=== PATIENT | male | born 1975 | race Two or more races ===

== ENCOUNTER 2019-01-12 17:30 | Outpatient (AMBR) | payer OTHER, SELFPAY ==
--- NOTE | 2019-01-06 08:33 | PTNOTE_ITS ---
PT OP Initial Eval Patient Information Visit Reasons: frozen shoulder Medical Diagnosis: M75.0 Treatment Dx #1: L shoulder pain Start of Care: 01/06/19 Date of Onset: 2 months ago Initial Assessment Subjective Pt is 43 yr old male who c/o L shoulder pain x2 months. Pain level today is none at rest, and 6/10 with lifting the arm. Increased pain with reaching out and above shoulder height. 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 PMH: HTN, DM, high cholesterol Imaging: with provider Pt goal: to get rid of the pain to reach better Objective L shoulder AROM: FF: 120 deg Abd: 95 deg ER: 75 deg HBB: to L5 with pain Strength: 3+/5 in all planes PROM: end-range pain with capsular tightness limited in capsular pattern R ULTT medial n: positive TTP: L upper quadrant diffusely Assessment Pt presentation consistent with referring Dx of adhesive capsulitis of L shoulder. ROM is limited in capsular pattern with pain that limits end-range tolerance into all planes but especially ER and IR. Eval followed by HEP with materials. [employer] and [employer] Goals 1. Ind with HEP 2. Improved AROM of R shoulder to 135 deg FF, 125 deg abduction and 90 deg ER 3. Improved HBB ROM to L3 4. Pt will reach OH x10 with <=3/10 pain Treatment Plan 1. Manual therapy 2. Therex 3. Modalities as indicated, moist heat pack, ice, electrical stimulation Frequency and Duration 2x a week for 8 weeks Certification Dates: 01/06/19 to 04/08/19 Office Procedures PT Procedures PT Date of Service: 01/06/19 OP PT Eval Mod Complex 30 minutes: Yes
--- NOTE | 2019-01-12 18:22 | PT.ODAYNRPT ---
PT Outpatient Daily Note Date of Service: January 12, 2019 OP Daily Note Visit Reasons: frozen shoulder Outpatient Physical Therapy Treatment Date: 01/12/19 Subjective: About the same as time of evaluation Objective: See F/S for therex Assessment: End-range pain limits A/PROM in capsular pattern Plan: Improve shoulder ROM Length of Time (minutes) of Treatment: 30 Minutes Office Procedures PT Procedures PT Date of Service: 01/06/19 OP PT Eval Mod Complex 30 minutes: Yes PT Procedures PT Date of Service: 01/12/19 Therapeutic Exercise 30 minutes: Yes
== END 2019-01-28 23:59 | disposition home or self-care (01) ==
PROVIDERS: PCP Family Medicine; Referring Provider Family Medicine; Visit Provider Orthopaedic Surgery
DX: M25.512 Pain in left shoulder (principal)
CPT/HCPCS: 97110; 97162

== ENCOUNTER → 2024-07-01 | Outpatient (CLI) | payer OTHER, SELFPAY ==
[2024-07-01 14:41] LABS: INR 2.7 (0.9-1.3); Prothrombin Time 27.2 Seconds (9.0-12.2)
== END | disposition home or self-care (01) ==
LOC: COPL 13:10
PROVIDERS: PCP Family Medicine; Referring Provider Internal Medicine Cardiovascular Disease; Visit Provider Internal Medicine Cardiovascular Disease
DX: Z01.89 Encounter for other specified special examinations (principal)
CPT/HCPCS: 36415; 85610

== ENCOUNTER → 2024-07-04 | Outpatient (CLI) | payer OTHER, SELFPAY ==
[2024-07-04 08:32] LABS: Basophils % (Auto) 0 % (0-2.5); Eosinophils # (Auto) 0.1 Thou/mm3 (0.0-0.5); Eosinophils % (Auto) 1 % (0-10); Hematocrit 42.5 % (41.0-53.0); Hemoglobin 14.4 g/dL (13.5-16.0); Immature Granulocytes % (Auto) 0 % (0-0); Immature Granulocytes Auto 0.01 Thou/mm3 (0.00-0.00); Lymphocytes % (Auto) 37 % (10-50); Mean Corpuscular HGB Conc 33.9 g/dl (31.0-37.0); Mean Corpuscular Hemoglobin 29.1 pg (25.0-35.0); Mean Corpuscular Volume 86 fL (80-100); Monocytes # (Auto) 0.4 Thou/mm3 (0.0-0.8); Monocytes % (Auto) 7 % (0-12); Neutrophils # (Auto) 2.9 Thou/mm3 (1.8-7.7); Neutrophils % (Auto) 55 % (37-80); Nucleated Red Blood Cell % 0 /100 WBC (0); Platelet Count 264 Thou/mm3 (140-440); RDW Standard Deviation 41.5 fL (35.1-43.9); Red Blood Count 4.94 Miln/mm3 (4.50-5.90); White Blood Count 5.3 Thou/mm3 (3.8-10.6)
[2024-07-04 08:55] LABS: Alanine Aminotransferase 14 U/L (10-49); Albumin, Serum 4.9 gm/dL (3.5-5.0); Albumin/Globulin Ratio 1.8 (1.2-2.2); Alkaline Phosphatase 86 U/L (46-116); Anion Gap 7 (7-16); Aspartate Amino Transferase 17 U/L (0-34); BUN/Creatinine Ratio 14 Ratio (12-20); Blood Urea Nitrogen 13 mg/dL (9-23); Calcium 9.9 mg/dL (8.3-10.6); Calcium (Corrected) 9.9 mg/dL (8.5-10.1); Carbon Dioxide 28.4 mMol/L (20.0-31.0); Cardiac Risk Estimate 3.3 RATIO (4.0-6.7); Chloride 102 mMol/L (98-107); Cholesterol 128 mg/dL (132-200); Creatinine (Component) 0.9 mg/dL (0.6-1.3); Globulin 2.8 gm/dL (2.3-3.5); Glucose 203 mg/dL (74-106); HDL Cholesterol 39 mg/dL (40-60); LDL Cholesterol,Calculated 38 mg/dL (0-130); Magnesium 2.1 mg/dL (1.6-2.6); Osmolality,Calculated 279 (275-295); Potassium 3.9 mMol/L (3.4-5.1); Sodium 137 mMol/L (136-145); Total Protein 7.7 gm/dL (5.7-8.2); Triglycerides 253 mg/dL (30-150); eGFR > 60 See Note
[2024-07-04 08:57] LABS: Folate 11.29 ng/mL (>5.38); Vitamin B12 538 pg/mL (211-911); Vitamin D 25 Hydroxy Total 24.6 ng/mL (7.3-40.2)
[2024-07-04 09:01] LABS: B-Type Natriuretic Peptide < 20 pg/mL (0-100)
[2024-07-04 09:31] LABS: Glucose Estimated Average 232 mg/dL (80-131); Hemoglobin A1C 9.7 % Hgb (4.8-6.0)
[2024-07-04 10:36] LABS: Ferritin 90 ng/mL (10.5-307.3)
[2024-07-12 06:51] LABS: Testosterone, Free,Dialysis 55.6 pg/mL (35.0-155.0); Testosterone, Total, Dialysis 260 ng/dL (250-1100)
== END | disposition home or self-care (01) ==
LOC: COPL 07:28
PROVIDERS: PCP Family Medicine; Referring Provider Internal Medicine Endocrinology, Diabetes & Metabolism; Visit Provider Internal Medicine Endocrinology, Diabetes & Metabolism
DX: E29.1 Testicular hypofunction (principal); I11.9 Hypertensive heart disease without heart failure; Z79.899 Other long term (current) drug therapy
CPT/HCPCS: 36415; 80053; 80061; 82306; 82607; 82728; 82746; 83036; 83735; 83880; 84402; 84403; 85025

== ENCOUNTER → 2024-08-08 | Outpatient (CLI) | payer OTHER, SELFPAY ==
[2024-08-08 11:38] LABS: Prothrombin Time 21.3 Seconds (9.0-12.2)
[2024-08-08 11:54] LABS: Cardiac Risk Estimate 4.8 RATIO (4.0-6.7); Cholesterol 176 mg/dL (132-200); HDL Cholesterol 37 mg/dL (40-60); Triglycerides 679 mg/dL (30-150)
[2024-08-15 06:50] LABS: Albumin 4.5 g/dL (3.6-5.1); SHBG 10 nmol/L (10-50); Testosterone, Bioavailable 69.5 ng/dL (110.0-575.0); Testosterone, Free 33.8 pg/mL (46.0-224.0); Testosterone,Total 130 ng/dL (250-1100)
== END | disposition home or self-care (01) ==
PROVIDERS: PCP Family Medicine; Referring Provider Internal Medicine Cardiovascular Disease; Visit Provider Internal Medicine Cardiovascular Disease
DX: E29.1 Testicular hypofunction (principal)
CPT/HCPCS: 36415; 80061; 82040; 84270; 84403; 85610

== ENCOUNTER → 2024-09-02 | Outpatient (CLI) | payer OTHER, SELFPAY ==
[2024-09-02 16:56] LABS: Cardiac Risk Estimate 3.9 RATIO (4.0-6.7); Cholesterol 160 mg/dL (132-200); HDL Cholesterol 41 mg/dL (40-60); INR 2.2 (0.9-1.3); Prothrombin Time 22.9 Seconds (9.0-12.2); Triglycerides 446 mg/dL (30-150)
== END | disposition home or self-care (01) ==
LOC: COPL 15:31
PROVIDERS: PCP Nurse Practitioner Family; Referring Provider Nurse Practitioner Family; Visit Provider Internal Medicine Cardiovascular Disease
DX: E78.1 Pure hyperglyceridemia (principal)
CPT/HCPCS: 36415; 80061; 85610

== ENCOUNTER → 2024-10-03 | Outpatient (CLI) | payer OTHER, SELFPAY ==
[2024-10-03 16:43] LABS: INR 2.1 (0.9-1.3); Prothrombin Time 21.6 Seconds (9.0-12.2)
== END | disposition home or self-care (01) ==
LOC: COPL 15:51
PROVIDERS: PCP Family Medicine; Referring Provider Internal Medicine Cardiovascular Disease; Visit Provider Internal Medicine Cardiovascular Disease
DX: I35.9 Nonrheumatic aortic valve disorder, unspecified (principal)
CPT/HCPCS: 36415; 85610

== ENCOUNTER → 2024-10-31 | Outpatient (CLI) | payer OTHER, SELFPAY ==
[2024-10-31 17:26] LABS: INR 2.6 (0.9-1.3); Prothrombin Time 26.4 Seconds (9.0-12.2)
== END | disposition home or self-care (01) ==
LOC: COPL 16:29
PROVIDERS: PCP Family Medicine; Referring Provider Internal Medicine Cardiovascular Disease; Visit Provider Internal Medicine Cardiovascular Disease
DX: I35.9 Nonrheumatic aortic valve disorder, unspecified (principal)
CPT/HCPCS: 36415; 85610

== ENCOUNTER → 2024-11-29 | Outpatient (CLI) | payer OTHER, SELFPAY ==
[2024-11-29 17:55] LABS: INR 3.5 (0.9-1.3)
[2024-11-29 17:58] LABS: Prothrombin Time 35.1 Seconds (9.0-12.2)
== END | disposition home or self-care (01) ==
LOC: COPL 16:23
PROVIDERS: PCP Family Medicine; Referring Provider Internal Medicine Cardiovascular Disease; Visit Provider Internal Medicine Cardiovascular Disease
DX: I35.9 Nonrheumatic aortic valve disorder, unspecified (principal)
CPT/HCPCS: 36415; 85610

== ENCOUNTER → 2024-12-07 | Outpatient (CLI) | payer OTHER, SELFPAY | END | disposition home or self-care (01) | LOC: COPL 15:59 | PROVIDERS: PCP Family Medicine; Referring Provider Internal Medicine Cardiovascular Disease; Visit Provider Internal Medicine Cardiovascular Disease | DX: I35.9 Nonrheumatic aortic valve disorder, unspecified (principal) | CPT/HCPCS: 36415; 85610 ==

== ENCOUNTER → 2024-12-29 | Outpatient (CLI) | payer OTHER, SELFPAY ==
[2024-12-29 17:39] LABS: Prothrombin Time 20.9 Seconds (9.0-12.2)
== END | disposition home or self-care (01) ==
LOC: COPL 16:41
PROVIDERS: PCP Family Medicine; Referring Provider Internal Medicine Cardiovascular Disease; Visit Provider Internal Medicine Cardiovascular Disease
DX: I35.9 Nonrheumatic aortic valve disorder, unspecified (principal)
CPT/HCPCS: 36415; 85610

== ENCOUNTER → 2025-01-20 | Outpatient (CLI) | payer OTHER, SELFPAY ==
[2025-01-20 08:50] LABS: Creatinine MALB Rnd Ur 44 mg/dL (30-125); Microalbumin Creat Ratio 11 mg/gCrea (<30); Microalbumin, Random Urine 5 mg/L (0-300)
[2025-01-20 08:54] LABS: Cholesterol 136 mg/dL (132-200); HDL Cholesterol 34 mg/dL (40-60); LDL Cholesterol,Calculated 49 mg/dL (0-130); Triglycerides 267 mg/dL (30-150)
== END | disposition home or self-care (01) ==
PROVIDERS: PCP Family Medicine; Referring Provider Nurse Practitioner Family; Visit Provider Nurse Practitioner Family
DX: I10 Essential (primary) hypertension (principal); E78.1 Pure hyperglyceridemia
CPT/HCPCS: 36415; 80061; 82043; 82570

== ENCOUNTER → 2025-01-30 | Outpatient (CLI) | payer OTHER, SELFPAY ==
[2025-01-30 17:58] LABS: INR 3.1 (0.9-1.3)
[2025-01-30 18:13] LABS: Prothrombin Time 30.9 Seconds (9.0-12.2)
== END | disposition home or self-care (01) ==
LOC: COPL 16:18
PROVIDERS: PCP Family Medicine; Referring Provider Internal Medicine Cardiovascular Disease; Visit Provider Internal Medicine Cardiovascular Disease
DX: I35.9 Nonrheumatic aortic valve disorder, unspecified (principal)
CPT/HCPCS: 36415; 85610

== ENCOUNTER → 2025-02-28 | Outpatient (CLI) | payer OTHER, SELFPAY ==
[2025-02-28 16:42] LABS: INR 2.9 (0.9-1.3); Prothrombin Time 29.6 Seconds (9.0-12.2)
== END | disposition home or self-care (01) ==
LOC: COPL 15:02
PROVIDERS: PCP Family Medicine; Referring Provider Internal Medicine Cardiovascular Disease; Visit Provider Internal Medicine Cardiovascular Disease
DX: I35.9 Nonrheumatic aortic valve disorder, unspecified (principal)
CPT/HCPCS: 36415; 85610

== ENCOUNTER → 2025-03-31 | Outpatient (CLI) | payer OTHER, SELFPAY ==
[2025-03-31 12:41] LABS: INR 3.1 (0.9-1.3)
[2025-03-31 12:42] LABS: Prothrombin Time 31.4 Seconds (9.0-12.2)
== END | disposition home or self-care (01) ==
LOC: COPL 10:43
PROVIDERS: PCP Family Medicine; Referring Provider Internal Medicine Cardiovascular Disease; Visit Provider Internal Medicine Cardiovascular Disease
DX: I35.9 Nonrheumatic aortic valve disorder, unspecified (principal)
CPT/HCPCS: 36415; 85610

== ENCOUNTER → 2025-05-03 | Outpatient (CLI) | payer OTHER, SELFPAY ==
[2025-05-03 16:26] LABS: INR 2.4 (0.9-1.3); Prothrombin Time 25.1 Seconds (9.0-12.2)
== END | disposition home or self-care (01) ==
LOC: COPL 15:24
PROVIDERS: PCP Family Medicine; Referring Provider Internal Medicine Cardiovascular Disease; Visit Provider Internal Medicine Cardiovascular Disease
DX: I35.9 Nonrheumatic aortic valve disorder, unspecified (principal)
CPT/HCPCS: 36415; 85610

== ENCOUNTER → 2025-05-30 | Outpatient (CLI) | payer OTHER, SELFPAY ==
[2025-05-30 09:06] LABS: INR 2.1 (0.9-1.3); Prothrombin Time 21.4 Seconds (9.0-12.2)
[2025-05-30 09:26] LABS: Prostate Specific Antigen 0.31 ng/mL (0-4.00)
[2025-05-30 09:35] LABS: Cardiac Risk Estimate 3.6 RATIO (4.0-6.7); Cholesterol 147 mg/dL (132-200); HDL Cholesterol 41 mg/dL (40-60); LDL Cholesterol,Calculated 53 mg/dL (0-130); Triglycerides 267 mg/dL (30-150)
== END | disposition home or self-care (01) ==
LOC: COPL 07:17
PROVIDERS: PCP Nurse Practitioner Family; Referring Provider Nurse Practitioner Family; Visit Provider Internal Medicine Cardiovascular Disease
DX: E78.1 Pure hyperglyceridemia (principal); Z12.5 Encounter for screening for malignant neoplasm of prostate; I35.9 Nonrheumatic aortic valve disorder, unspecified
CPT/HCPCS: 36415; 80061; 84153; 85610

== ENCOUNTER → 2025-07-04 | Outpatient (CLI) | payer OTHER, SELFPAY ==
[2025-07-04 17:39] LABS: INR 1.9 (0.9-1.3); Prothrombin Time 19.5 Seconds (9.0-12.2)
== END | disposition home or self-care (01) ==
LOC: COPL 16:07
PROVIDERS: PCP Family Medicine; Referring Provider Internal Medicine Cardiovascular Disease; Visit Provider Internal Medicine Cardiovascular Disease
DX: I35.9 Nonrheumatic aortic valve disorder, unspecified (principal)
CPT/HCPCS: 36415; 85610

== ENCOUNTER → 2025-07-18 | Outpatient (CLI) | payer OTHER, SELFPAY ==
[2025-07-18 16:41] LABS: INR 2.4 (0.9-1.3); Prothrombin Time 24.0 Seconds (9.0-12.2)
== END | disposition home or self-care (01) ==
LOC: COPL 14:49
PROVIDERS: PCP Family Medicine; Referring Provider Internal Medicine Cardiovascular Disease; Visit Provider Internal Medicine Cardiovascular Disease
DX: I35.9 Nonrheumatic aortic valve disorder, unspecified (principal)
CPT/HCPCS: 36415; 85610

== ENCOUNTER → 2025-08-02 | Outpatient (CLI) | payer OTHER, SELFPAY ==
[2025-08-02 16:40] LABS: INR 2.8 (0.9-1.3); Prothrombin Time 26.9 Seconds (9.0-12.2)
== END | disposition home or self-care (01) ==
LOC: COPL 14:59
PROVIDERS: PCP Family Medicine; Referring Provider Internal Medicine Cardiovascular Disease; Visit Provider Internal Medicine Cardiovascular Disease
DX: I35.9 Nonrheumatic aortic valve disorder, unspecified (principal)
CPT/HCPCS: 36415; 85610